=== PATIENT | male | born 1990 | race Caucasian/White ===

== ENCOUNTER 2021-03-16 05:33 | Emergency (ER) | payer OTHER ==
[2021-03-16 06:42] LABS: BASOPHIL 0.4 % (0-2); EOSINOPHIL 1.4 % (0-5); HCT 46.2 % (42.0-52.0); HGB 15.5 g/dl (13.2-18.0); LYMPHOCYTE 41.9 % (15-48); MCH 28.1 pg (25.0-31.0); MCHC 33.5 g/dL (32.0-36.0); MCV 83.8 fL (78.0-100.0); MONOCYTE 10.9 % (0-12); MPV 11.4 fL (6.0-9.5); NEUTROPHIL 45.1 % (41-80); NRBC 0; PLT 339 K/uL (150-400); RBC 5.51 M/uL (4.70-6.00); RDW 13.7 % (11.5-14.0); WBC 7.7 K/uL (4.0-10.5)
[2021-03-16 07:03] LABS: BUN/CREAT RATIO (CALC) 11.1 RATIO; CREATININE 0.9 mg/dL (0.67-1.17); POTASSIUM 3.5 mmol/L (3.5-5.1)
[2021-03-16 07:28] LABS: COLOR ORANGE (YELLOW)
[2021-03-16 07:29] LABS: CLARITY CLEAR (CLEAR)
[2021-03-16 07:31] LABS: BACTERIA TRACE; URINARY RBC 20-50; URINARY WBC RARE
[2021-03-16 07:32] LABS: CALCIUM OXALATE CRYSTALS TRACE; MUCOUS TRACE
[2021-03-16] MEDS ORDERED: ONDANSETRON ODT4 MG SL (08:58)
[2021-03-16] MEDS ORDERED: NORCO 5-325 TA1 EACH PO (08:58)
[2021-03-16] MEDS ORDERED: FLOMAX0.4 MG PO (08:58)
[2021-03-16] MEDS ORDERED: IBUPROFEN800 MG PO (08:58)
== END 2021-03-16 11:05 | disposition home or self-care (01) ==
LOC: FER 05:33
PROVIDERS: Emergency Medicine Emergency Medical Services
DX: N13.2 Hydronephrosis with renal and ureteral calculous obstruction (principal)
CPT/HCPCS: 36415; 80048; 81001; 85025; J1170; J1885; J2270; J2405; J7030